=== PATIENT | female | born 1940 | race Two or more races ===

== ENCOUNTER 2022-01-07 07:44 | Outpatient (CLI) | payer OTHER | END 2022-01-07 07:52 | disposition home or self-care (01) | LOC: NUCLEAR 07:44 | PROVIDERS: ATTEND Internal Medicine Pulmonary Disease | DX: R91.1 Solitary pulmonary nodule (principal); R93.89 Abnormal findings on diagnostic imaging of other specified body structures; Z57.31 Occupational exposure to environmental tobacco smoke; D32.9 Benign neoplasm of meninges, unspecified | CPT/HCPCS: 78816; A9552 ==